=== PATIENT | female | born 1940 | race Two or more races ===

== ENCOUNTER 2023-06-13 20:04 | Inpatient (IN) ==
[2023-06-13] MEDS ORDERED: SODIUM CHLORIDE 1,000 ML IV STA (20:10)
[2023-06-13] MEDS ORDERED: ZOFRAN 4 MG/2 ML IVP STA (20:10)
[2023-06-13 20:38] LABS: BASOPHILS % (AUTO) 0.3 % (0.0-3.0); HEMOGLOBIN 13.1 g/dl (12.0-16.0); IMMATURE GRANULOCYTE # (AUTO) 0.1 (0.0-1.0); IMMATURE GRANULOCYTE % (AUTO) 0.4 % (0.0-5.0); LYMPHOCYTES # (AUTO) 0.7 K/uL (0.60-3.4); LYMPHOCYTES % (AUTO) 5.3 (10.0-50.0); MEAN CORPUSCULAR HEMOGLOBIN 29.2 pg (27.0-31.0); MEAN CORPUSCULAR HGB CONC 30.5 (31.8-35.4); MONOCYTES # (AUTO) 0.8 K/uL (0.4-2.0); MONOCYTES % (AUTO) 6.8 (0-10); NEUTROPHILS # (AUTO) 10.7 K/ul (2.0-6.9); NEUTROPHILS % (AUTO) 87.2 % (42.2-75.2); PLATELET COUNT 255 10^3/uL (140-440); RDW COEFFICIENT OF VARIATION 15.1 % (11.6-14.8); RED BLOOD COUNT 4.48 10^6/ul (4.20-5.40); WHITE BLOOD COUNT 12.29 K/ul (4.6-10.2)
--- NOTE | 2023-06-13 20:41 | DI ---
EXAM: FLAT AND UPRIGHT VIEWS OF THE ABDOMEN HISTORY: Nausea and vomiting COMPARISON: None. FINDINGS: No evidence of free air. Bowel does not appear obstructed. Degenerative change spine hips and pelvis .No renal stones. IMPRESSION: No acute abnormality.
--- NOTE | 2023-06-13 20:42 | DI ---
EXAM: CHEST RADIOGRAPH TECHNIQUE: Single frontal chest radiograph. HISTORY: Nausea and vomiting. COMPARISON: None. FINDINGS: The patient is leaning and rotated to the left. Equivocal pneumonia versus atelectasis of the left lower lobe. Small left pleural effusion. No visible pneumothorax. Mild cardiomegaly. No acute displaced rib fractures are identified. Surgical clips in the right upper quadrant. IMPRESSION: 1. Equivocal mild pneumonia versus atelectasis of the left lower lobe with small pleural effusion. 2. Mild cardiomegaly.
[2023-06-13 20:50] LABS: ALANINE AMINOTRANSFERASE 66.2 U/L (0-35); ALBUMIN 3.85 g/dL (3.5-5.0); ALKALINE PHOSPHATASE 106.3 U/L (53-141); ASPARTATE AMINO TRANSFERASE 67.8 U/L (14-36); BILIRUBIN,TOTAL 0.97 mg/dL (0.2-1.3); BLOOD UREA NITROGEN 23.1 mg/dL (7-17); CALCIUM 8.73 mg/dL (8.4-10.2); CARBON DIOXIDE 22.8 mmol/L (22-30.0); CHLORIDE 107.1 mmol/L (98-107); CREATININE 0.87 mg/dL (0.60-1.30); GLUCOSE 188.3 mg/dL (74-106); POTASSIUM 3.93 mmol/L (3.5-5.1); SODIUM 141.2 mmol/L (134.5-145); TOTAL PROTEIN 7.75 g/dL (6.3-8.2)
[2023-06-13] MEDS ORDERED: ROCEPHIN 2 GM/50 ML D5W 2 GM/50 ML BAG IV ONE (20:54)
--- NOTE | 2023-06-13 21:39 | ED.PDOC ---
General ED Provider: Dr. BETO SAWYER Chief Complaint: Nausea/Vomiting Stated Complaint: See above Time Seen by Provider: 06/13/23 20:06 Information Source: Family, Long Term and EMT Primary Care Provider: GAURAV JACKSON Nursing and Triage Documentation Reviewed and Agree: Yes (unless otherwise noted in my documentation.) Review of Systems Review Of Systems Constitutional: Reports Other (documented below) All Other Systems: Other (documented below) [facility] Medical History (Updated 06/13/23 @ 23:59 by IVONNE LEROY RN) Abnormal findings on diagnostic imaging of liver and biliary tract R93.2 - Abnormal findings on diagnostic imaging of liver and biliary tract (ICD-10) Abnormal results of liver function studies R94.5 - Abnormal results of liver function studies (ICD-10) Altered mental status, unspecified R41.82 - Altered mental status, unspecified (ICD-10) Chronic diastolic (congestive) heart failure I50.32 - Chronic diastolic (congestive) heart failure (ICD-10) Cognitive communication deficit R41.841 - Cognitive communication deficit (ICD-10) Difficulty in walking, not elsewhere classified R26.2 - Difficulty in walking, not elsewhere classified (ICD-10) 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 - Dysphagia following other cerebrovascular disease (ICD-10) Dysphagia, oral phase R13.11 - Dysphagia, oral phase (ICD-10) Essential (primary) hypertension I10 - Essential (primary) hypertension (ICD-10) Generalized muscle weakness M62.81 - Muscle weakness (generalized) (ICD-10) Hyperglycemia, unspecified R73.9 - Hyperglycemia, unspecified (ICD-10) Hypo-osmolality and hyponatremia E87.1 - Hypo-osmolality and hyponatremia (ICD-10) Iron deficiency anemia, unspecified D50.9 - Iron deficiency anemia, unspecified (ICD-10) Liver disease, unspecified K76.9 - Liver disease, unspecified (ICD-10) Moderate protein-calorie malnutrition E44.0 - Moderate protein-calorie malnutrition (ICD-10) Muscle wasting and atrophy, not elsewhere classified, multiple sites M62.59 - Muscle wasting and atrophy, not elsewhere classified, multiple sites (ICD-10) Other abnormalities of gait and mobility R26.89 - Other abnormalities of gait and mobility (ICD-10) Other lack of coordination R27.8 - Other lack of coordination (ICD-10) Other recurrent depressive disorders F33.8 - Other recurrent depressive disorders (ICD-10) Other reduced mobility Z74.09 - Other reduced mobility (ICD-10) 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 - 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 (ICD-10) 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 - 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 (ICD-10) Paroxysmal atrial fibrillation I48.0 - Paroxysmal atrial fibrillation (ICD-10) Personal history of COVID-19 Z86.16 - Personal history of COVID-19 (ICD-10) Repeated falls R29.6 - Repeated falls (ICD-10) Type 2 diabetes mellitus without complications E11.9 - Type 2 diabetes mellitus without complications (ICD-10) Unsteadiness on feet R26.81 - Unsteadiness on feet (ICD-10) Female Reproductive History Menstrual Hx Hysterectomy: No Hx Tubal Ligation: No Physical Exam Physical Exam Appearance: Reports Other (documented below if examined) Ill-appearing: Not Applicable (documented below if examined) Pain Distress: Not Applicable (documented below if examined) Eyes: Reports Other (documented below if examined) ENT: Reports Other (documented below if examined) Neck: Not Examined (documented below if examined) Respiratory: Reports Other (documented below if examined) Cardiovascular: Reports Other (documented below if examined) GI/: Reports Other (documented below if examined) Musculoskeletal: Reports Other (documented below if examined) Skin: Reports Other (documented below if examined) Neurological: Reports Other (documented below if examined) Psychiatric: Reports Other (documented below if examined) Critical Care Note Critical Care Note Total Critical Care Time (mins): 0 Course Course 06/13/23 20:30 06/13/23 20:30 Orders, Labs, Meds: Lab Review 06/13/23 06/13/23 06/13/23 20:30 21:00 22:11 WBC 12.29 H RBC 4.48 Hgb 13.1 Hct 43.0 MCV 96.0 MCH 29.2 MCHC 30.5 L RDW Coeff of Tony 15.1 H Plt Count 255 Immature Gran % (Auto) 0.4 Neut % (Auto) 87.2 H Lymph % (Auto) 5.3 L Carter % (Auto) 6.8 Eos % (Auto) 0.0 Baso % (Auto) 0.3 Neut # (Auto) 10.7 H Lymph # (Auto) 0.7 Carter # (Auto) 0.8 Eos # (Auto) 0.0 Baso # (Auto) 0.0 Immature Gran # (Auto) 0.1 PT 11.5 H INR 1.12 APTT 32.2 Sodium 141.2 Potassium 3.93 Chloride 107.1 H Carbon Dioxide 22.8 Anion Gap 15.23 BUN 23.1 H Creatinine 0.87 Estimated GFR (MDRD) 62.00 BUN/Creatinine Ratio 26.55 Glucose 188.3 H Lactic Acid 1.20 Calcium 8.73 Total Bilirubin 0.97 AST 67.8 H ALT 66.2 H Alkaline Phosphatase 106.3 Troponin I 0.018 NT-Pro-B Natriuret Pep 3640 H Total Protein 7.75 Albumin 3.85 Globulin 3.90 Albumin/Globulin Ratio 0.98 D-Dimer 1040.51 H Urine Color Yellow Urine Clarity Clear Urine pH 5.5 Ur Specific [place] 1.025 Urine Protein 2+ H Urine Glucose (UA) Negative Urine Ketones Negative Urine Blood 2+ H Urine Nitrite Positive H Urine Bilirubin Negative Urine Urobilinogen 0.2 Ur Leukocyte Esterase 1+ H Urine Microscopic RBC 10-20 Urine Microscopic WBC 10-20 Ur Squamous Epith Cells 0-2 Urine Bacteria 3+ Orders Category Date Time Status ADMIT PATIENT INPATIENT .TO [facility] (MONITORED BED) ADMISSION 06/13/23 22:09 Active EKG-(ED ONLY) Stat CARDIO 06/13/23 20:11 Completed INTAKE & OUTPUT Q8HR CARE 06/13/23 22:12 Active IP: INSERT SALINE LOCK [facility] CARE 06/13/23 22:12 Active TELEMETRY MONITORING TELE CARE 06/13/23 22:12 Active VITAL SIGNS Q8HR CARE 06/13/23 22:11 Active VITAL SIGNS Q8HR CARE 06/13/23 22:12 Active ACCUCHECK (ED) [ED ACCUCHECK ASSESSMENT] .ONCE EMERGENCY 06/13/23 20:13 Active ED CLEANING SPECIALIST APPLIED .ONCE EMERGENCY 06/13/23 20:13 Active BLOOD CULTURE (ED ONLY) Stat LAB 06/13/23 Ordered CBC W/ AUTO DIFF Stat LAB 06/13/23 20:30 Completed COMPREHENSIVE METABOLIC PANEL Stat LAB 06/13/23 20:30 Completed CRP [C-REACTIVE PROTEIN] Stat LAB 06/13/23 20:30 Received D-DIMER Stat LAB 06/13/23 21:00 Completed LACTIC ACID Stat LAB 06/13/23 20:30 Completed PROBNP ED [NT-PROBNP(ED)] Stat LAB 06/13/23 20:30 Completed PT WITH INR Stat LAB 06/13/23 21:00 Completed PTT [PARTIAL THROMBOPLASTIN TIME] Stat LAB 06/13/23 21:00 Completed TROPONIN I Stat LAB 06/13/23 20:30 Completed URINALYSIS WITH MICROSCOPIC Stat LAB 06/13/23 22:11 Completed Azithromycin Inj [Zithromax] 500 mg Meds 06/13/23 22:08 Discontinued 0.9 % Sodium Chloride [Sodium Chloride] 250 ml IV ONCE Ceftriaxone/D5w 2 gm Premix [Rocephin 2 gm/50 ml D5w] Meds 06/13/23 20:54 Discontinued 2 gm in 50 ml IV ONCE Ondansetron HCl/Pf [Zofran 4 mg/2 ml] Meds 06/13/23 20:10 Discontinued 4 mg IVP ONCE STA Sodium Chloride 0.9% [Sodium Chloride] 1,000 ml Meds 06/13/23 20:10 Discontinued IV BOLUS RESUSCITATION STATUS Routine OTHERS 06/13/23 22:09 Ordered ABDOMEN, SERIES FLAT & UPRIGHT Stat RADS 06/13/23 20:11 Completed CHEST, 1V AP ONLY Stat RADS 06/13/23 20:11 Completed OT EVALUATION Routine THERAPIES 06/14/23 00:01 Ordered PT INPATIENT EVALUATION Routine THERAPIES 06/13/23 22:11 Ordered Medications Generic Name Dose Route Start Last Admin Trade Name Freq PRN Reason Stop Dose Admin Diltiazem HCl 120 mg 06/14/23 09:00 Diltiazem Hcl 120 Mg Cap.Er.24h PO DAILY [facility] Ferrous Sulfate 324 mg 06/14/23 09:00 Ferrous Sulfate 324 Mg Tablet.Dr PO BID [facility] Levothyroxine Sodium 50 mcg 06/14/23 09:00 Levothyroxine Sodium 50 Mcg Tablet PO DAILY [facility] Lisinopril 20 mg 06/14/23 09:00 Lisinopril 10 Mg Tablet PO DAILY [facility] Melatonin 3 mg 06/14/23 21:00 Melatonin 3 Mg Tablet PO BEDTIME [facility] Metoprolol Succinate 200 mg 06/14/23 09:00 Metoprolol Succinate 50 Mg Tab.Er.24h PO DAILY [facility] Mirtazapine 15 mg 06/14/23 21:00 Mirtazapine 15 Mg Tablet PO BEDTIME [facility] Non-Formulary Medication 0.75 mg 06/15/23 09:00 Dulaglutide [Trulicity] SUBCUT WEEKLY [facility] Non-Formulary Medication 300 cap 06/14/23 09:00 Magnesium Oxide-Mg Aa Chelate [Magnesium (Oxide/Aa Chelate)] PO DAILY [facility] Pantoprazole Sodium 40 mg 06/14/23 09:00 Pantoprazole Sodium 40 Mg Tablet. PO BID [facility] Discontinued Medications Generic Name Dose Route Start Last Admin Trade Name Austenq PRN Reason Stop Dose Admin Sodium Chloride 1,000 mls @ 1,000 mls/hr 06/13/23 20:10 06/13/23 21:21 Sodium Chloride IV 06/13/23 21:09 1,000 mls/hr BOLUS STA Administration CEFTRIAXONE/D5W 2 GM PREMIX 2 gm in 50 mls @ 100 mls/hr 06/13/23 20:54 06/13/23 21:41 Rocephin 2 Gm/50 Ml D5w IV 06/13/23 21:23 100 mls/hr ONCE ONE Administration Azithromycin 500 mg/ Sodium 250 mls @ 250 mls/hr 06/13/23 22:08 06/13/23 22:34 Chloride IV 06/13/23 23:07 250 mls/hr ONCE ONE Administration Ondansetron HCl 4 mg 06/13/23 20:10 06/13/23 21:21 Ondansetron Hcl/Pf 4 Mg/2 Ml Sdv IVP 06/13/23 20:11 4 mg ONCE STA Administration Vital Signs: Temp Pulse Resp BP Pulse Ox 06/13/23 20:11 97.3 F L 103 H 16 158/90 H 93 L Discharge Plan Discharge Patient Disposition: ADMITTED INPATIENT Discharge Problem: CAP (community acquired pneumonia), Sepsis Did you review [place] [employer] for [place] controlled substances?: Not Applicable ED Provider: BETO SAWYER Condition: Stable Physician Progress Note: Disclaimer: This note was dictated by speech recognition technology. Minor errors in aerial installer may be present. Please call and notify me immediately for clarification or corrections. CC:declined state HPI: This is a care home resident patient who has dementia and at baseline has very limited verbal communications and has very limited mobility. She had a decline of her overall state of wellness and mental status for the past 4 days. Her family and the NH staff were concerned. The problem list, allergies, current medications and pharmacy records were reviewed and updated. ROS is included above. PE: Vital signs reviewed as well as all nursing documentation. General: Awake, alert, no acute distress, not toxic appearing but appears sick, dry, cachetic, chronically ill Overall, the patient is atraumatic, has no deformities, has no focal deficits, has no inappropriate behavior. Respiratory: No distress Cardiac: no edema or JVD, RRR MDM: All results and reports for tests that were done in the emergency department have been reviewed and considered in the planning and disposition process. DD: Sepsis Metabolic derangement: Hypo or hypernatremia, dehydration, acid-base imbalance Uremia Hepatic encephalopathy CVA Post-ictal state Acute anemia Drug induced ACS Arrhythmia Plan: CBC, CMP, EKG, UA, CXR, NS bolus Interpretation of tests: Leucocytosis with left shift, CXR was independently reviewed and interpreted and showed LLL PNA, pyuria, bacteruria Further action: sepsis workup was ordered, blood cultures, CRP, troponin, BNP, lactic acid, Ro cephin and azithromycin. BNP is elevated. F/U: the patient improved slightly. D/w family plan to admit and they agreed. D/w hospitalist who agreed to admit the patient to continue gentle hydration, abx treatment, PT/OT.
[2023-06-13] MEDS ORDERED: ZITHROMAX 500 MG in SODIUM CHLORIDE 250 ML IV ONE (22:08)
[2023-06-13 22:13] LABS: PARTIAL THROMBOPLASTIN TIME 32.2 SEC (23.9-40.0); PROTHROMBIN TIME 11.5 SEC (9.3-11.0)
[2023-06-13 22:28] LABS: BILIRUBIN,URINE Negative (NEGATIVE); CLARITY,URINE Clear (CLEAR); COLOR,URINE Yellow (YELLOW); GLUCOSE, URINE (UA) Negative (NEGATIVE); KETONES,URINE Negative (NEGATIVE); LEUKOCYTE ESTERASE ,URINE 1+ (NEGATIVE); NITRITE,URINE Positive (NEGATIVE); PH,URINE 5.5 (5-9); PROTEIN,URINE 2+ (NEGATIVE); URINE, BLOOD 2+ (NEGATIVE); UROBILINOGEN,URINE 0.2 (0.2)
[2023-06-13 22:32] LABS: SQUAMOUS EPITHELIAL CELL,UR 0-2 (0-5)
[2023-06-13 22:33] LABS: BACTERIA,URINE 3+ (NOT PRESENT)
[2023-06-14 00:59] VITALS: BMI 20.7
[2023-06-14 06:32] LABS: BASOPHILS % (AUTO) 0.3 % (0.0-3.0); EOSINOPHILS % (AUTO) 0.3 % (0.0-7.0); HEMATOCRIT 37.5 % (37.0-47.0); HEMOGLOBIN 11.5 g/dl (12.0-16.0); IMMATURE GRANULOCYTE # (AUTO) 0.1 (0.0-1.0); IMMATURE GRANULOCYTE % (AUTO) 0.5 % (0.0-5.0); LYMPHOCYTES # (AUTO) 0.9 K/uL (0.60-3.4); LYMPHOCYTES % (AUTO) 8.1 (10.0-50.0); MEAN CORPUSCULAR HEMOGLOBIN 29.3 pg (27.0-31.0); MEAN CORPUSCULAR HGB CONC 30.7 (31.8-35.4); MEAN CORPUSCULAR VOLUME 95.7 fl (81.0-99.0); MONOCYTES # (AUTO) 1.1 K/uL (0.4-2.0); MONOCYTES % (AUTO) 9.5 (0-10); NEUTROPHILS # (AUTO) 9.4 K/ul (2.0-6.9); NEUTROPHILS % (AUTO) 81.3 % (42.2-75.2); PLATELET COUNT 235 10^3/uL (140-440); RED BLOOD COUNT 3.92 10^6/ul (4.20-5.40); WHITE BLOOD COUNT 11.55 K/ul (4.6-10.2)
[2023-06-14 07:18] LABS: ALANINE AMINOTRANSFERASE 71.2 U/L (0-35); ALBUMIN 3.32 g/dL (3.5-5.0); ALKALINE PHOSPHATASE 90.7 U/L (53-141); ASPARTATE AMINO TRANSFERASE 74.2 U/L (14-36); BILIRUBIN,TOTAL 0.49 mg/dL (0.2-1.3); BLOOD UREA NITROGEN 20.2 mg/dL (7-17); CALCIUM 8.24 mg/dL (8.4-10.2); CARBON DIOXIDE 24.4 mmol/L (22-30.0); CHLORIDE 110.2 mmol/L (98-107); CREATININE 0.89 mg/dL (0.60-1.30); GLUCOSE 149.4 mg/dL (74-106); POTASSIUM 3.69 mmol/L (3.5-5.1); SODIUM 142.8 mmol/L (134.5-145); TOTAL PROTEIN 6.76 g/dL (6.3-8.2)
[2023-06-14] MEDS ORDERED: NON-FORMULARY MEDICATION (Magnesium Oxide-Mg Aa Chelate [Magnesium (Oxide/Aa Chelate)] 300 PO SCH (09:00)
[2023-06-14] MEDS: MAG-OX PO SCH (09:16)
[2023-06-14] MEDS: ZESTRIL PO SCH (09:16)
[2023-06-14] MEDS: PROTONIX PO SCH ×2 (09:16→20:51)
[2023-06-14] MEDS: FERROUS SULFATE PO SCH ×2 (09:16→20:52)
[2023-06-14] MEDS: SYNTHROID PO SCH (09:18)
[2023-06-14] MEDS: TOPROL XL PO SCH (09:18)
[2023-06-14] MEDS: CARDIZEM CD PO SCH (09:19)
--- NOTE | 2023-06-14 11:49 | PCM ---
Date of Service Date Seen by Provider: 06/14/23 Time Seen by Provider: 09:30 Admit Day/Time Admission Date: 06/13/23 Admission Time: 22:09 Reason for Admission Chief Complaint: SEPSIS Hospital Provider Hospital Provider: JUDY LANGE PA-C, [facility] Primary Care Physician Primary Care Physician: GAURAV JACKSON History of Present Illness History of Present Illness: Patient is an 82 year old female from the [place] with pmhx of CVA with left sided residual weakness, DMt@, HTN, heart failure, and paroxysmal a fib who presented to the [facility] for vomiting, decreased intake, and worsening mentation. In the ER patient was found to have LLL pneumonia and UTI. WBC count mildly elevated 12.2 and procal 0.71. D dimer 1040. BNP 3640. She was given fluids due to looking dehydrated and meeting sepsis criteria. She was admitted to [facility]. On my evaluation, patient is eating breakfast with assistance of family. and son are present. states she is looking much better today. Son states her baseline is answering yes or no (sometimes appropriately), gets in wheelchair during the day, then back to bed. Normally isn't able to say her name or where she is. This morning she is alert, and answering yes and no to questions which is an improvement. Discussed with her hx of PAF and that she is in a fib now. He states they took her off of a blood thinner due to a GI bleed. ROS limited due to patient's inability to provide history. Case Discussed With Case Discussed With: Patient's case was discussed with the ER Physicians, Dr. [facility] Medical History Abnormal findings on diagnostic imaging of liver and biliary tract R93.2 - Abnormal findings on diagnostic imaging of liver and biliary tract (ICD-10) Abnormal results of liver function studies R94.5 - Abnormal results of liver function studies (ICD-10) Altered mental status, unspecified R41.82 - Altered mental status, unspecified (ICD-10) Chronic diastolic (congestive) heart failure I50.32 - Chronic diastolic (congestive) heart failure (ICD-10) Cognitive communication deficit R41.841 - Cognitive communication deficit (ICD-10) Difficulty in walking, not elsewhere classified R26.2 - Difficulty in walking, not elsewhere classified (ICD-10) 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 - Dysphagia following other cerebrovascular disease (ICD-10) Dysphagia, oral phase R13.11 - Dysphagia, oral phase (ICD-10) Essential (primary) hypertension I10 - Essential (primary) hypertension (ICD-10) Generalized muscle weakness M62.81 - Muscle weakness (generalized) (ICD-10) Hyperglycemia, unspecified R73.9 - Hyperglycemia, unspecified (ICD-10) Hypo-osmolality and hyponatremia E87.1 - Hypo-osmolality and hyponatremia (ICD-10) Iron deficiency anemia, unspecified D50.9 - Iron deficiency anemia, unspecified (ICD-10) Liver disease, unspecified K76.9 - Liver disease, unspecified (ICD-10) Moderate protein-calorie malnutrition E44.0 - Moderate protein-calorie malnutrition (ICD-10) Muscle wasting and atrophy, not elsewhere classified, multiple sites M62.59 - Muscle wasting and atrophy, not elsewhere classified, multiple sites (ICD-10) Other abnormalities of gait and mobility R26.89 - Other abnormalities of gait and mobility (ICD-10) Other lack of coordination R27.8 - Other lack of coordination (ICD-10) Other recurrent depressive disorders F33.8 - Other recurrent depressive disorders (ICD-10) Other reduced mobility Z74.09 - Other reduced mobility (ICD-10) 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 - 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 (ICD-10) 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 - 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 (ICD-10) Paroxysmal atrial fibrillation I48.0 - Paroxysmal atrial fibrillation (ICD-10) Personal history of COVID-19 Z86.16 - Personal history of COVID-19 (ICD-10) Repeated falls R29.6 - Repeated falls (ICD-10) Type 2 diabetes mellitus without complications E11.9 - Type 2 diabetes mellitus without complications (ICD-10) Unsteadiness on feet R26.81 - Unsteadiness on feet (ICD-10) Social History (Updated 06/14/23 @ 11:55 by JUDY LANGE PA-C) Marital status: M Additional social history: [facility]. Allergies Allergies Allergy/AdvReac Type Severity Reaction Status Date / Time amlodipine [From [facility]] AdvReac Unknown Verified 06/13/23 20:18 codeine AdvReac Unknown Verified 06/13/23 20:18 propoxyphene AdvReac Unknown Verified 06/13/23 20:18 Sulfa (Sulfonamide AdvReac Unknown Verified 06/13/23 20:18 Antibiotics) Current Medications Home Medications ferrous sulfate 325 mg (65 mg iron) tablet 325 mg PO BID 09/09/20 [History Confirmed 06/13/23 Last Taken Unknown] lisinopril 20 mg tablet 20 mg PO DAILY 09/09/20 [History Confirmed 06/13/23 Last Taken Unknown] magnesium oxide-magnesium amino acid chelate 300 mg capsule (Magnesium (oxide/AA chelate)) 300 cap PO DAILY 09/09/20 [History Confirmed 06/13/23 Last Taken Unknown] melatonin 3 mg tablet 3 mg PO BEDTIME PRN Sleep 09/09/20 [History Confirmed 10/24 Last Taken Unknown] metoprolol succinate 200 mg capsule sprinkle, ext. release 24 hr 200 mg PO DAILY 09/09/20 [History Confirmed 06/13/23 Last Taken Unknown] diltiazem HCl 120 mg capsule,extended release 24 hr 120 mg PO DAILY 06/13/23 [History Confirmed 06/13/23 Last Taken Unknown] dulaglutide 0.75 mg/0.5 mL subcutaneous pen injector (Trulicity) 0.75 mg subcut DAILY 06/13/23 [History Confirmed 06/13/23 Last Taken Unknown] levothyroxine 50 mcg tablet 50 mcg PO DAILY 06/13/23 [History Confirmed 06/13/23 Last Taken Unknown] metformin 500 mg 24 hr tablet,extended release (Glumetza) 500 mg PO BID 06/13/23 [History Confirmed 06/13/23 Last Taken Unknown] mirtazapine 15 mg tablet 15 mg PO BEDTIME 06/13/23 [History Confirmed 06/13/23 Last Taken Unknown] pantoprazole 40 mg tablet,delayed release 40 mg PO BID 06/13/23 [History Confirmed 06/13/23 Last Taken Unknown] Home Diltiazem HCl (Diltiazem Hcl 120 Mg Cap.Er.24h) 120 mg PO DAILY [facility] Last Admin: 06/14/23 09:19 Dose: 120 mg Enoxaparin Sodium (Enoxaparin Sodium 30 Mg/0.3 Ml Syr) 30 mg SUBCUT DAILY [facility] Ferrous Sulfate (Ferrous Sulfate 324 Mg Tablet.) 324 mg PO BID [facility] Last Admin: 06/14/23 09:16 Dose: 324 mg CEFTRIAXONE/D5W 1 GM PREMIX (Rocephin 1 Gm/50 Ml D5w) 1 gm in 50 mls @ 100 mls/hr IV DAILY [facility] Stop: 06/17/23 12:29 Azithromycin 500 mg/ Sodium (Chloride) 250 mls @ 250 mls/hr IV DAILY [facility] Stop: 06/17/23 12:29 Insulin Human Lispro (Insulin Lispro 100 Unit/Ml (3 Ml) Vial) 0 unit SUBCUT PRN PRN; Protocol PRN Reason: Hyperglycemia Levothyroxine Sodium (Levothyroxine Sodium 50 Mcg Tablet) 50 mcg PO DAILY [facility] Last Admin: 06/14/23 09:18 Dose: 50 mcg Lisinopril (Lisinopril 10 Mg Tablet) 20 mg PO DAILY [facility] Last Admin: 06/14/23 09:16 Dose: 20 mg Magnesium Oxide (Magnesium Oxide 400 Mg Tablet) 400 mg PO DAILY [facility] Last Admin: 06/14/23 09:16 Dose: 400 mg Melatonin (Melatonin 3 Mg Tablet) 3 mg PO BEDTIME [facility] Metoprolol Succinate (Metoprolol Succinate 50 Mg Tab.Er.24h) 200 mg PO DAILY [facility] Last Admin: 06/14/23 09:18 Dose: 200 mg Mirtazapine (Mirtazapine 15 Mg Tablet) 15 mg PO BEDTIME [facility] Non-Formulary Medication (Dulaglutide [Trulicity]) 0.75 mg SUBCUT WEEKLY [facility] Pantoprazole Sodium (Pantoprazole Sodium 40 Mg Tablet.) 40 mg PO BID [facility] Last Admin: 06/14/23 09:16 Dose: 40 mg Sodium Chloride (0.9% Sodium Chloride 10 Ml Disp.Syrin) 1 syr IVF Q8HR [facility] Discontinued Medications Sodium Chloride (Sodium Chloride) 1,000 mls @ 1,000 mls/hr IV BOLUS STA Stop: 06/13/23 21:09 Last Admin: 06/13/23 21:21 Dose: 1,000 mls/hr CEFTRIAXONE/D5W 2 GM PREMIX (Rocephin 2 Gm/50 Ml D5w) 2 gm in 50 mls @ 100 mls/hr IV ONCE ONE Stop: 08/12/23 21:23 Last Admin: 06/13/23 21:41 Dose: 100 mls/hr Azithromycin 500 mg/ Sodium (Chloride) 250 mls @ 250 mls/hr IV ONCE ONE Stop: 06/13/23 23:07 Last Admin: 06/13/23 22:34 Dose: 250 mls/hr Ondansetron HCl (Ondansetron Hcl/Pf 4 Mg/2 Ml Sdv) 4 mg IVP ONCE STA Stop: 06/13/23 20:11 Last Admin: 06/13/23 21:21 Dose: 4 mg Review of Systems Constitutional: Reports Weakness Head: Reports Normocephalic and Atraumatic Cardiovascular: Denies Chest pain Respiratory: Denies Cough or Shortness of air Gastrointestinal: Reports Nausea and Vomiting; Denies Abdominal pain Physical examination Most Recent Vital Signs: Most Recent Vital Signs Temperature 99.3 F 06/14/23 05:16 Temperature Source Axillary 06/14/23 05:16 Temperature Source Infrared 06/13/23 20:11 Pulse Rate 110 H 06/14/23 05:16 Respiratory Rate 16 06/14/23 05:16 Blood Pressure 116/74 06/14/23 05:16 Blood Pressure Mean 88 06/14/23 05:16 Blood Pressure Right Arm 129/79 06/13/23 23:30 Blood Pressure Location Right Arm 06/14/23 05:16 Blood Pressure Position Supine 06/14/23 05:16 O2 Sat by Pulse Oximetry 93 L 06/14/23 05:16 Oxygen Delivery Method Room Air 06/14/23 05:16 Height 5 ft 06/13/23 23:30 Weight 106 lb 8 oz 06/13/23 23:30 Telemetry Type Remote Telemetry 06/14/23 07:00 Telemetry Monitoring Continues 06/14/23 07:00 Irregular Telemetry Rate (Approximate) 100-110 BPM 06/14/23 07:00 Telemetry Heart Rate 109 H 06/14/23 07:00 EKG QRS Interval 0.08 06/14/23 07:00 Telemetry Strip Reading A-Flutter 06/14/23 07:00 Appearance: Positive Other (+thin, frail, elderly patient. NAD. Alert. Demented. ) Skin: Positive [place] and Warm; Negative Rashes HEENT: Positive Normocephalic and Atraumatic Neck: Positive Supple and Midline Trachea Chest/Lungs: Positive Clear to Auscultation Bilaterally; Negative Rales, Rhonci or Wheezes Heart: Positive Irregular Rhythm GI/: Positive Soft, Nontender and Bowel Sounds Normal Extremities: Negative Edema Neurological: Positive Alert and Other (+generalized weakness. left upper ext contracture from past cva. Able to follow basic commands. ) Psychiatric: Positive Other (+unable to fully assess due to dementia and limited communication. ) Labs This Visit Labs This Visit: Labs This Visit 06/13/23 06/13/23 06/13/23 20:30 21:00 22:11 WBC 12.29 H RBC 4.48 Hgb 13.1 Hct 43.0 MCV 96.0 MCH 29.2 MCHC 30.5 L RDW Coeff of Tony 15.1 H Plt Count 255 Immature Gran % (Auto) 0.4 Neut % (Auto) 87.2 H Lymph % (Auto) 5.3 L [place] % (Auto) 6.8 Eos % (Auto) 0.0 Baso % (Auto) 0.3 Neut # (Auto) 10.7 H Lymph # (Auto) 0.7 [place] # (Auto) 0.8 Eos # (Auto) 0.0 Baso # (Auto) 0.0 Immature Gran # (Auto) 0.1 PT 11.5 H INR 1.12 APTT 32.2 Sodium 141.2 Potassium 3.93 Chloride 107.1 H Carbon Dioxide 22.8 Anion Gap 15.23 BUN 23.1 H Creatinine 0.87 Estimated GFR (MDRD) 62.00 BUN/Creatinine Ratio 26.55 Glucose 188.3 H Lactic Acid 1.20 Calcium 8.73 Total Bilirubin 0.97 AST 67.8 H ALT 66.2 H Alkaline Phosphatase 106.3 Troponin I 0.018 NT-Pro-B Natriuret Pep 3640 H Total Protein 7.75 Albumin 3.85 Globulin 3.90 Albumin/Globulin Ratio 0.98 Procalcitonin TSH D-Dimer 1040.51 H Urine Color Yellow Urine Clarity Clear Urine pH 5.5 Ur Specific [place] 1.025 Urine Protein 2+ H Urine Glucose (UA) Negative Urine Ketones Negative Urine Blood 2+ H Urine Nitrite Positive H Urine Bilirubin Negative Urine Urobilinogen 0.2 Ur Leukocyte Esterase 1+ H Urine Microscopic RBC 10-20 Urine Microscopic WBC 10-20 Ur Squamous Epith Cells 0-2 Urine Bacteria 3+ 06/14/23 04:53 WBC 11.55 H RBC 3.92 L Hgb 11.5 L Hct 37.5 MCV 95.7 MCH 29.3 MCHC 30.7 L RDW Coeff of Tony 15.0 H Plt Count 235 Immature Gran % (Auto) 0.5 Neut % (Auto) 81.3 H Lymph % (Auto) 8.1 L [place] % (Auto) 9.5 Eos % (Auto) 0.3 Baso % (Auto) 0.3 Neut # (Auto) 9.4 H Lymph # (Auto) 0.9 [place] # (Auto) 1.1 Eos # (Auto) 0.0 Baso # (Auto) 0.0 Immature Gran # (Auto) 0.1 PT INR APTT Sodium 142.8 Potassium 3.69 Chloride 110.2 H Carbon Dioxide 24.4 Anion Gap 11.89 BUN 20.2 H Creatinine 0.89 Estimated GFR (MDRD) 61.00 BUN/Creatinine Ratio 22.69 Glucose 149.4 H Lactic Acid Calcium 8.24 L Total Bilirubin 0.49 AST 74.2 H ALT 71.2 H Alkaline Phosphatase 90.7 Troponin I NT-Pro-B Natriuret Pep Total Protein 6.76 Albumin 3.32 L Globulin 3.44 Albumin/Globulin Ratio 0.96 Procalcitonin 0.71 H TSH 0.651 D-Dimer Urine Color Urine Clarity Urine pH Ur Specific [place] Urine Protein Urine Glucose (UA) Urine Ketones Urine Blood Urine Nitrite Urine Bilirubin Urine Urobilinogen Ur Leukocyte Esterase Urine Microscopic RBC Urine Microscopic WBC Ur Squamous Epith Cells Urine Bacteria Microbiology This Visit 06/13/23 22:11 Urine,[place] Urine Culture - Preliminary Imaging Imaging: EXAM: CHEST RADIOGRAPH TECHNIQUE: Single frontal chest radiograph. HISTORY: Nausea and vomiting. COMPARISON: None. FINDINGS: The patient is leaning and rotated to the left. Equivocal pneumonia versus atelectasis of the left lower lobe. Small left pleural effusion. No visible pneumothorax. Mild cardiomegaly. No acute displaced rib fractures are identified. Surgical clips in the right upper quadrant. IMPRESSION: 1. Equivocal mild pneumonia versus atelectasis of the left lower lobe with small pleural effusion. 2. Mild cardiomegaly. Review Statement Review Statement: I have independently reviewed and interpreted the labs/EKGs/imaging that were ordered by the ER provider. I have reviewed all outside records that are available currently in our EMR including imaging/notes/labs from previous visits. Plan Plan: 1. CAP, left - Rocephin and azith ordered. RT consult. D dimer elevated and tachycardia, will get CTA to r/o PE. 2. UTI - UA suspect for UTI. Cont rocephin. UC pending. 3. Sepsis in setting of CAP and UTI - Continue abx as above. BC pending. LA normal but procal elevated at 0.71. Will trend. Renal function at baseline. 4. Paroxysmal a fib - Not on blood thinner due to past GI bleed. Cont metoprolol and cardizem. 5. DMt2 - Hold metformin. SS insulin. Accuchecks achs. 6. Hypertension - Continue home meds 7. Hypothyroidism - Continue home meds 8. Iron deficiency - Continue iron supplement 9. GERD - Continue home meds 10. Elevated d dimer - CTA chest to r/o PE and BLE US to r/o DVT. DVT Prophylaxis: lovenox, prophylactic dose Time Spent: Greater than 80 minutes spent with patient, 50% of the time spent wi th this patient was devoted to counseling and coordination of care. [facility] minutes spent discussing advance care planning. DNR Admit to: Inpatient Discussed Plan of Care with Dr. Amara Jones. Medications Medication Orders: Medications Ordered Category Date Time Status Diltiazem HCl [Cardizem Cd] Meds 06/14/23 09:00 Active 120 mg PO DAILY Ferrous Sulfate Meds 06/14/23 09:00 Active 324 mg PO BID Levothyroxine Sodium [Synthroid] Meds 06/14/23 09:00 Active 50 mcg PO DAILY Lisinopril [Zestril] Meds 06/14/23 09:00 Active 20 mg PO DAILY Magnesium Oxide [Mag-Ox] Meds 06/14/23 09:00 Active 400 mg PO DAILY Melatonin Meds 06/14/23 21:00 Active 3 mg PO BEDTIME Metoprolol Succinate [Toprol Xl] Meds 06/14/23 09:00 Active 200 mg PO DAILY Mirtazapine [Remeron] Meds 06/14/23 21:00 Active 15 mg PO BEDTIME Pantoprazole Sodium [Protonix] Meds 06/14/23 09:00 Active 40 mg PO BID dulaglutide [Trulicity] Meds 06/15/23 09:00 Active 0.75 mg SUBCUT WEEKLY
[2023-06-14] MEDS: ZITHROMAX 500 MG in SODIUM CHLORIDE 250 ML IV SCH (13:44)
--- NOTE | 2023-06-14 13:47 | CT ---
EXAM: CT ANGIOGRAPHY CHEST (PE PROTOCOL) HISTORY: Elevated D-dimer, tachycardia TECHNIQUE: CTA chest with intravenous contrast. PE protocol. Multiplanar images were provided with MIP images and 3-D reconstructions. COMPARISON: None FINDINGS: No pulmonary arterial thromboembolism. Thoracic aorta has mild to moderate atherosclerot ic disease. A few coronary artery calcifications are suggested. Cardiomegaly is present. Cannot ex clude focal wall thickening of the mid esophagus just below the level of the pepito. Patient positio sapphire degrades image quality. Lungs reveal vascular congestion and diffuse interstitial infiltrates b ilaterally. Trace pleural effusions. No pneumothorax. Bones reveal exaggerated thoracic kyphosis. Mosaic appearance of the liver parenchymal density may represent geographic steatosis. IMPRESSION: 1. No pulmonary arterial thromboembolism. 2. Atherosclerotic disease 3. Cardiomegaly. 4. Lungs reveal vascular congestion and diffuse mild to moderate interstitial infiltrates bilaterall y (pulmonary edema versus less likely pneumonitis). Trace pleural effusions. 5. Cannot exclude focal wall thickening of the mid esophagus just below the level of the pepito. 6. Mosaic appearance of the liver parenchymal density may represent geographic steatosis. 7. Recommend follow-up CT chest for reevaluation. - - - - - All CT scans are performed using dose optimization techniques as appropriate to the performed exam an d include at least one of the following: Automated exposure control, adjustment of the mA and/or kV according t o size, and the use of iterative reconstruction technique.
[2023-06-14] MEDS: ROCEPHIN 1 GM/50 ML D5W 1 GM/50 ML BAG IV SCH (13:53)
[2023-06-14] MEDS: REMERON PO SCH (20:51)
[2023-06-14] MEDS: MELATONIN PO SCH (20:51)
[2023-06-15 05:51] LABS: BASOPHILS % (AUTO) 0.6 % (0.0-3.0); EOSINOPHILS # (AUTO) 0.1 K/ul (0.0-0.7); EOSINOPHILS % (AUTO) 1.5 % (0.0-7.0); HEMATOCRIT 36.6 % (37.0-47.0); HEMOGLOBIN 11.2 g/dl (12.0-16.0); IMMATURE GRANULOCYTE % (AUTO) 0.3 % (0.0-5.0); LYMPHOCYTES % (AUTO) 14.6 (10.0-50.0); MEAN CORPUSCULAR HGB CONC 30.6 (31.8-35.4); MEAN CORPUSCULAR VOLUME 94.8 fl (81.0-99.0); MONOCYTES # (AUTO) 0.9 K/uL (0.4-2.0); MONOCYTES % (AUTO) 12.7 (0-10); NEUTROPHILS % (AUTO) 70.3 % (42.2-75.2); PLATELET COUNT 222 10^3/uL (140-440); RED BLOOD COUNT 3.86 10^6/ul (4.20-5.40); WHITE BLOOD COUNT 7.11 K/ul (4.6-10.2)
[2023-06-15 06:11] LABS: ALBUMIN 3.07 g/dL (3.5-5.0); ALKALINE PHOSPHATASE 107.8 U/L (53-141); ASPARTATE AMINO TRANSFERASE 151.7 U/L (14-36); BILIRUBIN,TOTAL 0.54 mg/dL (0.2-1.3); BLOOD UREA NITROGEN 16.7 mg/dL (7-17); CALCIUM 8.07 mg/dL (8.4-10.2); CARBON DIOXIDE 27.1 mmol/L (22-30.0); CHLORIDE 106.4 mmol/L (98-107); CREATININE 0.85 mg/dL (0.60-1.30); GLUCOSE 136.7 mg/dL (74-106); POTASSIUM 3.16 mmol/L (3.5-5.1); SODIUM 139.6 mmol/L (134.5-145); TOTAL PROTEIN 6.6 g/dL (6.3-8.2)
[2023-06-15] MEDS: ROCEPHIN 1 GM/50 ML D5W 1 GM/50 ML BAG IV SCH (09:34)
[2023-06-15] MEDS: TOPROL XL PO SCH (09:40)
[2023-06-15] MEDS: MAG-OX PO SCH (09:40)
[2023-06-15] MEDS: ZESTRIL PO SCH (09:40)
[2023-06-15] MEDS: CARDIZEM CD PO SCH (09:41)
[2023-06-15] MEDS: PROTONIX PO SCH ×2 (09:41→20:51)
[2023-06-15] MEDS: FERROUS SULFATE PO SCH ×2 (09:41→20:51)
[2023-06-15] MEDS ORDERED: POTASSIUM CHL 10% ORAL SOL PO ONE (09:52)
[2023-06-15] MEDS: LOVENOX SUBCUT SCH (09:52)
[2023-06-15] MEDS: SYNTHROID PO SCH (09:56)
[2023-06-15] MEDS: ZITHROMAX 500 MG in SODIUM CHLORIDE 250 ML IV SCH (10:18)
--- NOTE | 2023-06-15 11:24 | PCM.PROG ---
Date/Time Seen Date Seen by Provider: 06/15/23 Time Seen by Provider: 09:15 Provider Provider: POLINA MORRIS, [facility] Chief Complaint Chief Complaint: SEPSIS Subjective Subjective: Awake and eating breakfast. and son at beside. No events overnight. Not requiring oxygen at this time. Objective Appearance: Positive No Apparent Distress, Ill-Appearing, Thin and Cachectic Chest/Lungs: Positive Symmetrical With Equal Breath Sounds and Rhonci Heart: Positive RRR and Pulses Normal GI/: Positive Soft, Nontender, Bowel Sounds Normal and No Distention Musculoskeletal: Positive Other (contracted lower extremities) Neurological: Positive Alert and Other (able to follow basic commands, chronic left sided weakness due to previous CVA) Vital Signs Vital Signs: Vital Signs: Last 24 Hours 06/14/23 14:00 06/14/23 13:00 06/14/23 19:00 Temperature 97.9 F Temperature Source Oral Pulse Rate 87 Pulse Rate [Apical] Respiratory Rate 18 Blood Pressure 122/69 Blood Pressure Mean 86 Blood Pressure Location Right Arm Blood Pressure Position Supine O2 Sat by Pulse Oximetry 93 L Oxygen Delivery Method Room Air Telemetry Type Remote Telemetry Remote Telemetry Telemetry Monitoring Continues Continues Irregular Telemetry Rate (Approximate) 90-100 BPM 80-90 BPM Telemetry Heart Rate 100 82 EKG QRS Interval 0.08 0.07 Telemetry Strip Reading AFIB A-fib no ectopy noted 06/14/23 20:00 06/14/23 21:23 06/15/23 01:00 Temperature 97.3 F L Temperature Source Temporal Artery Scan Pulse Rate 96 Pulse Rate [Apical] 84 Respiratory Rate 14 16 Blood Pressure 125/72 Blood Pressure Mean 89 Blood Pressure Location Right Arm Blood Pressure Position Supine O2 Sat by Pulse Oximetry 94 L Oxygen Delivery Method Room Air Room Air Telemetry Type Remote Telemetry Telemetry Monitoring Continues Irregular Telemetry Rate (Approximate) 100-110 BPM Telemetry Heart Rate 108 H EKG QRS Interval 0.07 Telemetry Strip Reading A-Fib no ectopy noted 06/15/23 05:07 06/15/23 07:00 Temperature 96.4 F L Temperature Source Oral Pulse Rate 90 Pulse Rate [Apical] Respiratory Rate 14 Blood Pressure 128/78 Blood Pressure Mean 94 Blood Pressure Location Right Arm Blood Pressure Position Supine O2 Sat by Pulse Oximetry 97 Oxygen Delivery Method Room Air Telemetry Type Remote Telemetry Telemetry Monitoring Continues Irregular Telemetry Rate (Approximate) Telemetry Heart Rate 92 EKG QRS Interval Telemetry Strip Reading Afib Lab Results Lab Results: Lab Results: Last 24 Hours 06/15/23 06/15/23 06/15/23 06:00 05:50 05:45 WBC 7.11 RBC 3.86 L Hgb 11.2 L Hct 36.6 L MCV 94.8 MCH 29.0 MCHC 30.6 L RDW Coeff of Tony 15.0 H Plt Count 222 Immature Gran % (Auto) 0.3 Neut % (Auto) 70.3 Lymph % (Auto) 14.6 [place] % (Auto) 12.7 H Eos % (Auto) 1.5 Baso % (Auto) 0.6 Neut # (Auto) 5.0 Lymph # (Auto) 1.0 [place] # (Auto) 0.9 Eos # (Auto) 0.1 Baso # (Auto) 0.0 Immature Gran # (Auto) 0.0 Sodium 139.6 Potassium 3.16 L Chloride 106.4 Carbon Dioxide 27.1 Anion Gap 9.26 BUN 16.7 Creatinine 0.85 Estimated GFR (MDRD) 64.00 BUN/Creatinine Ratio 19.64 Glucose 136.7 H Calcium 8.07 L Total Bilirubin 0.54 AST 151.7 H D ALT 130.0 H D Alkaline Phosphatase 107.8 Total Protein 6.60 Albumin 3.07 L Globulin 3.53 Albumin/Globulin Ratio 0.86 Procalcitonin 0.69 H Additional Comments Additional Comments: I have independently reviewed and interpreted the labs/EKGs/imaging ordered during this hospital stay. I have reviewed outside records that are available in our EMR that pertain to medical stay including imaging/notes/labs from previous visits. Active Medications Active Medications: Medications Generic Name Dose Route Start Last Admin Trade Name Freq PRN Reason Stop Dose Admin Diltiazem HCl 120 mg 06/14/23 09:00 06/15/23 09:41 Diltiazem Hcl 120 Mg Cap.Er.24h PO 120 mg DAILY [facility] Administration Enoxaparin Sodium 30 mg 06/15/23 09:00 06/15/23 09:52 Enoxaparin Sodium 30 Mg/0.3 Ml Syr SUBCUT 30 mg DAILY [facility] Administration Ferrous Sulfate 324 mg 06/14/23 09:00 06/15/23 09:41 Ferrous Sulfate 324 Mg Tablet. PO 324 mg BID [facility] Administration CEFTRIAXONE/D5W 1 GM PREMIX 1 gm in 50 mls @ 100 mls/hr 06/14/23 12:30 06/15/23 09:34 Rocephin 1 Gm/50 Ml D5w IV 06/17/23 12:29 100 mls/hr DAILY [facility] Administration Azithromycin 500 mg/ Sodium 250 mls @ 250 mls/hr 06/14/23 12:30 06/15/23 10:18 Chloride IV 06/17/23 12:29 250 mls/hr DAILY [facility] Administration Insulin Human Lispro 0 unit 06/14/23 12:05 Insulin Lispro 100 Unit/Ml (3 Ml) Vial SUBCUT PRN PRN Hyperglycemia Protocol Levothyroxine Sodium 50 mcg 06/14/23 09:00 06/15/23 09:56 Levothyroxine Sodium 50 Mcg Tablet PO 50 mcg DAILY [facility] Administration Lisinopril 20 mg 06/14/23 09:00 06/15/23 09:40 Lisinopril 10 Mg Tablet PO 20 mg DAILY [facility] Administration Magnesium Oxide 400 mg 06/14/23 09:00 06/15/23 09:40 Magnesium Oxide 400 Mg Tablet PO 400 mg DAILY [facility] Administration Melatonin 3 mg 06/14/23 21:00 06/14/23 20:51 Melatonin 3 Mg Tablet PO 3 mg BEDTIME [facility] Administration Metoprolol Succinate 200 mg 06/14/23 09:00 06/15/23 09:40 Metoprolol Succinate 50 Mg Tab.Er.24h PO 200 mg DAILY [facility] Administration Mirtazapine 15 mg 06/14/23 21:00 06/14/23 20:51 Mirtazapine 15 Mg Tablet PO 15 mg BEDTIME [facility] Administration Non-Formulary Medication 0.75 mg 06/15/23 09:00 06/15/23 10:43 Dulaglutide [Trulicity] SUBCUT Not Given WEEKLY [facility] Pantoprazole Sodium 40 mg 06/14/23 09:00 06/15/23 09:41 Pantoprazole Sodium 40 Mg Tablet.Dr PO 40 mg BID [facility] Administration Sodium Chloride 1 syr 06/14/23 13:00 06/15/23 05:10 0.9% Sodium Chloride 10 Ml Disp.Syrin IVF 1 syr Q8HR [facility] Administration Plan Plan: 1. CAP, left - Rocephin and azith ordered. RT consult - no hypoxia at this time, CTA negative for PE 2. UTI - UA suspect for UTI, Cont rocephin. UC negative 3. Sepsis in setting of CAP and UTI - Continue abx as above. BC pending. LA normal but procal elevated at 0.71. Will trend. Renal function at baseline. 4. Acute Transaminitis - likely due to above, checking hep panel and liver us due to significant elevation in enzymes 5. Paroxysmal a fib - Not on blood thinner due to past GI bleed. Cont metoprolol and cardizem. 6. DMt2 - Hold metformin. SS insulin. Accuchecks achs. 7. Hypertension - Continue home meds 8. Hypothyroidism - Continue home meds 9. Iron deficiency - Continue iron supplement 10. GERD - Continue home meds 11. Elevated d dimer - CTA negative for PE, checking BLE US to r/o DVT. Review Statement Review Statement: I have personally discussed and reviewed the patient's visit/currently labs/imaging/decision making with Dr. Jones, my supervising attending. Greater that 50 minutes spent with patient, 50% of the time spent with this patient was devoted to counseling and coordination of care.
[2023-06-15] MEDS ORDERED: POTASSIUM CHL 10% ORAL SOL ONE (12:22)
--- NOTE | 2023-06-15 13:09 | US ---
EXAM: ULTRASOUND ABDOMINAL COMPLETE HISTORY: Elevated LFTs TECHNIQUE: Sonography of the abdomen was performed. Images were obtained and stored in a permanent a rchive. Color Doppler images of the main portal vein were also obtained. COMPARISON: None FINDINGS: Pancreas: Normal sonographic appearance of the head and body. Tail is partially obscured. Liver: Heterogeneous echotexture with ill-defined hyperechoic areas. No. - Normal antegrade flow within the main portal vein. Biliary: Limited evaluation of the bile duct secondary to bowel gas. The gallbladder is removed. Spleen: Not visualized. . Right Kidney: No hydronephrosis. No lesions. No calculus. Left Kidney: No hydronephrosis. No lesions. No calculus. IVC: Limits. Aorta: No aneurysmal dilatation in visualized portions. Other: No ascites. IMPRESSION: Limited by bowel gas. Heterogeneous echotexture of the liver suggestive of areas of focal fatty infiltration and fatty spar ing. Otherwise, unremarkable abdominal ultrasound as seen. Please see above description.
--- NOTE | 2023-06-15 13:16 | US ---
EXAM: VENOUS DOPPLER BILATERAL LOWER EXTREMITY. HISTORY: Elevated D-dimer COMPARISON: None. TECHNIQUE: Duplex Doppler ultrasound of the bilateral lower extremity. Color Doppler, spectral Dopp ler waveforms, and burgos scale images obtained. FINDINGS: The common femoral, greater saphenous, superficial femoral, profunda femoris, popliteal, anterior tib ial, peroneal, and posterior tibial veins are freely compressible with spontaneous flow. IMPRESSION: No evidence of deep vein thrombosis.
[2023-06-15] MEDS: HUMALOG SUBCUT PRN ×2 (17:02→20:52)
[2023-06-15] MEDS: REMERON PO SCH (20:51)
[2023-06-15] MEDS: MELATONIN PO SCH (20:51)
[2023-06-16 05:27] LABS: BASOPHILS % (AUTO) 0.7 % (0.0-3.0); EOSINOPHILS # (AUTO) 0.2 K/ul (0.0-0.7); EOSINOPHILS % (AUTO) 2.5 % (0.0-7.0); HEMATOCRIT 36.6 % (37.0-47.0); HEMOGLOBIN 11.2 g/dl (12.0-16.0); IMMATURE GRANULOCYTE # (AUTO) 0.1 (0.0-1.0); IMMATURE GRANULOCYTE % (AUTO) 0.8 % (0.0-5.0); LYMPHOCYTES # (AUTO) 1.2 K/uL (0.60-3.4); MEAN CORPUSCULAR HEMOGLOBIN 28.6 pg (27.0-31.0); MEAN CORPUSCULAR HGB CONC 30.6 (31.8-35.4); MEAN CORPUSCULAR VOLUME 93.6 fl (81.0-99.0); MONOCYTES # (AUTO) 0.8 K/uL (0.4-2.0); MONOCYTES % (AUTO) 13.1 (0-10); NEUTROPHILS # (AUTO) 3.9 K/ul (2.0-6.9); NEUTROPHILS % (AUTO) 62.9 % (42.2-75.2); PLATELET COUNT 198 10^3/uL (140-440); RDW COEFFICIENT OF VARIATION 14.6 % (11.6-14.8); RED BLOOD COUNT 3.91 10^6/ul (4.20-5.40); WHITE BLOOD COUNT 6.11 K/ul (4.6-10.2)
[2023-06-16 05:59] LABS: ALANINE AMINOTRANSFERASE 127.9 U/L (0-35); ALBUMIN 3.14 g/dL (3.5-5.0); ALKALINE PHOSPHATASE 110.3 U/L (53-141); ASPARTATE AMINO TRANSFERASE 108.9 U/L (14-36); BILIRUBIN,TOTAL 0.5 mg/dL (0.2-1.3); BLOOD UREA NITROGEN 13.6 mg/dL (7-17); CALCIUM 8.05 mg/dL (8.4-10.2); CARBON DIOXIDE 25.2 mmol/L (22-30.0); CHLORIDE 105.1 mmol/L (98-107); CREATININE 0.67 mg/dL (0.60-1.30); GLUCOSE 124.9 mg/dL (74-106); POTASSIUM 3.7 mmol/L (3.5-5.1); SODIUM 136.7 mmol/L (134.5-145); TOTAL PROTEIN 6.62 g/dL (6.3-8.2)
[2023-06-16 07:27] LABS: HBsAgSCREEN Negative (Negative); HCV ANTIBODY Non Reactive (Non Reactive); HEP A AB, IgM Negative (Negative); HEP B CORE Ab, IgM Negative (Negative)
[2023-06-16] MEDS: ROCEPHIN 1 GM/50 ML D5W 1 GM/50 ML BAG IV SCH (09:10)
[2023-06-16] MEDS: SYNTHROID PO SCH (09:15)
[2023-06-16] MEDS: PROTONIX PO SCH ×2 (09:15→17:18)
[2023-06-16] MEDS: FERROUS SULFATE PO SCH ×2 (09:16→20:24)
[2023-06-16] MEDS: TOPROL XL PO SCH (09:17)
[2023-06-16] MEDS: MAG-OX PO SCH (09:19)
[2023-06-16] MEDS: ZESTRIL PO SCH (09:19)
[2023-06-16] MEDS: CARDIZEM CD PO SCH (09:20)
[2023-06-16] MEDS: LOVENOX SUBCUT SCH (09:24)
[2023-06-16] MEDS: ZITHROMAX 500 MG in SODIUM CHLORIDE 250 ML IV SCH (09:46)
--- NOTE | 2023-06-16 11:03 | PCM.PROG ---
Date/Time Seen Date Seen by Provider: 06/16/23 Time Seen by Provider: 08:40 Provider Provider: POLINA MORRIS, [facility] Chief Complaint Chief Complaint: SEPSIS Subjective Subjective: No events overnight. Patient reports feeling "okay". Objective Appearance: Positive No Apparent Distress, Ill-Appearing, Thin and Cachectic Chest/Lungs: Positive Symmetrical With Equal Breath Sounds, Clear to Auscultation Bilaterally (diminished) and Good Air Movement all 4 Lung Freitas Heart: Positive RRR and Pulses Normal GI/: Positive Soft, Nontender, Bowel Sounds Normal and No Distention Musculoskeletal: Positive Other (contracted lower extremities, chronic left sided weakness) and Not Examined Neurological: Positive Sensation Intact, Alert and Disorinted Vital Signs Vital Signs: Vital Signs: Last 24 Hours 06/15/23 13:00 06/15/23 14:00 06/15/23 22:00 Temperature 97.1 F L 98.4 F Temperature Source Oral Oral Pulse Rate 87 74 Pulse Rate [Apical] Respiratory Rate 20 18 Blood Pressure 106/65 125/78 Blood Pressure Mean 78 93 Blood Pressure Location Left Arm Right Arm Blood Pressure Position Supine Sitting O2 Sat by Pulse Oximetry 98 94 L Oxygen Delivery Method Room Air Room Air Telemetry Type Remote Telemetry Telemetry Monitoring Continues Irregular Telemetry Rate (Approximate) Telemetry Heart Rate 83 EKG QRS Interval 0.06 Telemetry Strip Reading Afib 06/15/23 19:00 06/15/23 20:00 06/16/23 01:00 Temperature Temperature Source Pulse Rate Pulse Rate [Apical] 76 Respiratory Rate 16 Blood Pressure Blood Pressure Mean Blood Pressure Location Blood Pressure Position O2 Sat by Pulse Oximetry Oxygen Delivery Method Room Air Telemetry Type Remote Telemetry Remote Telemetry Telemetry Monitoring Continues Continues Irregular Telemetry Rate (Approximate) 90-100 BPM 70-80 BPM Telemetry Heart Rate 98 74 EKG QRS Interval 0.09 0.07 Telemetry Strip Reading A-Fib A-Fib 06/16/23 05:00 06/16/23 07:00 Temperature 97.2 F L Temperature Source Temporal Artery Scan Pulse Rate 82 Pulse Rate [Apical] Respiratory Rate 16 Blood Pressure 153/81 H Blood Pressure Mean 105 Blood Pressure Location Right Arm Blood Pressure Position O2 Sat by Pulse Oximetry 97 Oxygen Delivery Method Room Air Telemetry Type Remote Telemetry Telemetry Monitoring Continues Irregular Telemetry Rate (Approximate) Telemetry Heart Rate 99 EKG QRS Interval 0.08 Telemetry Strip Reading Afib Lab Results Lab Results: Lab Results: Last 24 Hours 06/16/23 06/16/23 06/15/23 05:30 05:14 05:21 WBC 6.11 RBC 3.91 L Hgb 11.2 L Hct 36.6 L MCV 93.6 MCH 28.6 MCHC 30.6 L RDW Coeff of Tony 14.6 Plt Count 198 Immature Gran % (Auto) 0.8 Neut % (Auto) 62.9 Lymph % (Auto) 20.0 Becker % (Auto) 13.1 H Eos % (Auto) 2.5 Baso % (Auto) 0.7 Neut # (Auto) 3.9 Lymph # (Auto) 1.2 Becker # (Auto) 0.8 Eos # (Auto) 0.2 Baso # (Auto) 0.0 Immature Gran # (Auto) 0.1 Sodium 136.7 Potassium 3.70 Chloride 105.1 Carbon Dioxide 25.2 Anion Gap 10.10 BUN 13.6 Creatinine 0.67 Estimated GFR (MDRD) 84.00 BUN/Creatinine Ratio 20.29 Glucose 124.9 H Calcium 8.05 L Total Bilirubin 0.50 AST 108.9 H D ALT 127.9 H Alkaline Phosphatase 110.3 C-Reactive Prot, Quant Total Protein 6.62 Albumin 3.14 L Globulin 3.48 Albumin/Globulin Ratio 0.90 Procalcitonin 0.37 H Hepatitis A IgM Ab Negative Hep Bs Antigen Negative Hep B Core IgM Ab Negative Hepatitis C Antibody Non reactive 06/13/23 20:30 WBC RBC Hgb Hct MCV MCH MCHC RDW Coeff of Tony Plt Count Immature Gran % (Auto) Neut % (Auto) Lymph % (Auto) Becker % (Auto) Eos % (Auto) Baso % (Auto) Neut # (Auto) Lymph # (Auto) Becker # (Auto) Eos # (Auto) Baso # (Auto) Immature Gran # (Auto) Sodium Potassium Chloride Carbon Dioxide Anion Gap BUN Creatinine Estimated GFR (MDRD) BUN/Creatinine Ratio Glucose Calcium Total Bilirubin AST ALT Alkaline Phosphatase C-Reactive Prot, Quant 110 H Total Protein Albumin Globulin Albumin/Globulin Ratio Procalcitonin Hepatitis A IgM Ab Hep Bs Antigen Hep B Core IgM Ab Hepatitis C Antibody Additional Comments Additional Comments: I have independently reviewed and interpreted the labs/EKGs/imaging ordered during this hospital stay. I have reviewed outside records that are available in our EMR that pertain to medical stay including imaging/notes/labs from previous visits. Active Medications Active Medications: Medications Generic Name Dose Route Start Last Admin Trade Name Kenisha PRN Reason Stop Dose Admin Diltiazem HCl 120 mg 06/14/23 09:00 06/16/23 09:20 Diltiazem Hcl 120 Mg Cap.Er.24h PO 120 mg DAILY PAOLA Administration Enoxaparin Sodium 30 mg 06/15/23 09:00 06/16/23 09:24 Enoxaparin Sodium 30 Mg/0.3 Ml Syr SUBCUT 30 mg DAILY PAOLA Administration Ferrous Sulfate 324 mg 06/14/23 09:00 06/16/23 09:16 Ferrous Sulfate 324 Mg Tablet. PO 324 mg BID PAOLA Administration CEFTRIAXONE/D5W 1 GM PREMIX 1 gm in 50 mls @ 100 mls/hr 06/14/23 12:30 09:10 Rocephin 1 Gm/50 Ml D5w IV 06/17/23 12:29 100 mls/hr DAILY PAOLA Administration Azithromycin 500 mg/ Sodium 250 mls @ 250 mls/hr 06/14/23 12:30 06/16/23 09:46 Chloride IV 06/17/23 12:29 250 mls/hr DAILY PAOLA Administration Insulin Human Lispro 0 unit 06/14/23 12:05 06/15/23 20:52 Insulin Lispro 100 Unit/Ml (3 Ml) Vial SUBCUT 3 unit PRN PRN Administration Hyperglycemia Protocol Levothyroxine Sodium 50 mcg 06/16/23 09:00 06/16/23 09:15 Levothyroxine Sodium 50 Mcg Tablet PO 50 mcg QDAC PAOLA Administration Lisinopril 20 mg 06/14/23 09:00 06/16/23 09:19 Lisinopril 10 Mg Tablet PO 20 mg DAILY PAOLA Administration Magnesium Oxide 400 mg 06/14/23 09:00 06/16/23 09:19 Magnesium Oxide 400 Mg Tablet PO 400 mg DAILY PAOLA Administration Melatonin 3 mg 06/14/23 21:00 06/15/23 20:51 Melatonin 3 Mg Tablet PO 3 mg BEDTIME PAOLA Administration Metoprolol Succinate 200 mg 06/14/23 09:00 06/16/23 09:17 Metoprolol Succinate 50 Mg Tab.Er.24h PO 200 mg DAILY PAOLA Administration Mirtazapine 15 mg 06/14/23 21:00 06/15/23 20:51 Mirtazapine 15 Mg Tablet PO 15 mg BEDTIME PAOLA Administration Non-Formulary Medication 0.75 mg 06/15/23 09:00 06/15/23 10:43 Dulaglutide [Trulicity] SUBCUT Not Given WEEKLY PAOLA Pantoprazole Sodium 40 mg 06/16/23 09:00 06/16/23 09:15 Pantoprazole Sodium 40 Mg Tablet. PO 40 mg BIDAC PAOLA Administration Sodium Chloride 1 syr 06/14/23 13:00 06/16/23 06:06 0.9% Sodium Chloride 10 Ml Disp.Syrin IVF 1 syr Q8HR PAOLA Administration Plan Plan: 1. CAP, left - Rocephin and azith ordered. RT consult - no hypoxia at this time, CTA negative for PE 2. UTI - UA suspect for UTI, Cont rocephin. UC negative 3. Sepsis in setting of CAP and UTI - Continue abx as above. BC were not completed in the ER, new ones ordered this am and pending. Procal trending down, WBC in normal range with abx.. Renal function at baseline. 4. Acute Transaminitis - improving, likely due to above, liver us negative, hep panel pending, monitoring enzymes daily 5. Paroxysmal a fib - Not on blood thinner due to past GI bleed. Cont metoprolol and cardizem. 6. DMt2 - Hold metformin. SS insulin. Accuchecks achs. 7. Hypertension - Continue home meds 8. Hypothyroidism - Continue home meds 9. Iron deficiency - Continue iron supplement 10. GERD - Continue home meds 11. Elevated d dimer - CTA negative for PE, US to r/o DVT negative. Review Statement Review Statement: I have personally discussed and reviewed the patient's visit/currently labs/imaging/decision making with Dr. Jones, my supervising attending. Greater that 50 minutes spent with patient, 50% of the time spent with this patient was devoted to counseling and coordination of care.
[2023-06-16] MEDS: MELATONIN PO SCH (20:24)
[2023-06-16] MEDS: REMERON PO SCH (20:24)
[2023-06-17] MEDS: SYNTHROID PO SCH (05:51)
[2023-06-17] MEDS: PROTONIX PO SCH (05:52)
[2023-06-17 05:53] LABS: BASOPHILS % (AUTO) 0.6 % (0.0-3.0); EOSINOPHILS # (AUTO) 0.2 K/ul (0.0-0.7); EOSINOPHILS % (AUTO) 2.2 % (0.0-7.0); HEMATOCRIT 36.7 % (37.0-47.0); HEMOGLOBIN 11.3 g/dl (12.0-16.0); IMMATURE GRANULOCYTE # (AUTO) 0.1 (0.0-1.0); IMMATURE GRANULOCYTE % (AUTO) 1.3 % (0.0-5.0); LYMPHOCYTES # (AUTO) 1.3 K/uL (0.60-3.4); LYMPHOCYTES % (AUTO) 19.2 (10.0-50.0); MEAN CORPUSCULAR HEMOGLOBIN 28.5 pg (27.0-31.0); MEAN CORPUSCULAR HGB CONC 30.8 (31.8-35.4); MEAN CORPUSCULAR VOLUME 92.7 fl (81.0-99.0); MONOCYTES # (AUTO) 0.9 K/uL (0.4-2.0); MONOCYTES % (AUTO) 13.4 (0-10); NEUTROPHILS # (AUTO) 4.3 K/ul (2.0-6.9); NEUTROPHILS % (AUTO) 63.3 % (42.2-75.2); PLATELET COUNT 289 10^3/uL (140-440); RDW COEFFICIENT OF VARIATION 14.1 % (11.6-14.8); RED BLOOD COUNT 3.96 10^6/ul (4.20-5.40); WHITE BLOOD COUNT 6.72 K/ul (4.6-10.2)
[2023-06-17 05:56] VITALS: BP 150/85; PULSE 94; RESP 16; TEMP 98.6
[2023-06-17 06:15] LABS: ALANINE AMINOTRANSFERASE 108.1 U/L (0-35); ALBUMIN 3.18 g/dL (3.5-5.0); ALKALINE PHOSPHATASE 113.5 U/L (53-141); ASPARTATE AMINO TRANSFERASE 76.7 U/L (14-36); BILIRUBIN,TOTAL 0.42 mg/dL (0.2-1.3); BLOOD UREA NITROGEN 12.1 mg/dL (7-17); CALCIUM 8.29 mg/dL (8.4-10.2); CARBON DIOXIDE 27.2 mmol/L (22-30.0); CHLORIDE 102.4 mmol/L (98-107); CREATININE 0.69 mg/dL (0.60-1.30); GLUCOSE 139.6 mg/dL (74-106); POTASSIUM 3.56 mmol/L (3.5-5.1); SODIUM 136.7 mmol/L (134.5-145); TOTAL PROTEIN 6.71 g/dL (6.3-8.2)
[2023-06-17] MEDS: ROCEPHIN 1 GM/50 ML D5W 1 GM/50 ML BAG IV SCH (08:00)
[2023-06-17] MEDS: TOPROL XL PO SCH (08:02)
[2023-06-17] MEDS: CARDIZEM CD PO SCH (08:03)
[2023-06-17] MEDS: FERROUS SULFATE PO SCH (08:04)
[2023-06-17] MEDS: MAG-OX PO SCH (08:04)
[2023-06-17] MEDS: ZESTRIL PO SCH (08:04)
[2023-06-17] MEDS: LOVENOX SUBCUT SCH (08:08)
[2023-06-17] MEDS: ZITHROMAX 500 MG in SODIUM CHLORIDE 250 ML IV SCH (09:13)
--- NOTE | 2023-06-17 12:48 | DCSUM ---
Admission Date Admission Date: 06/13/23 Discharge Date Discharge Date: 06/17/23 Admission Diagnosis Admission Diagnosis: 1. CAP, left 2. UTI 3. Sepsis in setting of CAP and UTI 4. Paroxysmal a fib 5. DMt2 6. Hypertension 7. Hypothyroidism 8. Iron deficiency 9. GERD 10. Elevated d dimer Discharge Diagnosis Discharge Diagnosis: 1. CAP, left - Improving 2. UTI - Improving 3. Sepsis in setting of CAP and UTI - Ruled out 4. Acute Transaminitis - Improving 5. Paroxysmal a fib - Stable 6. DMt2 - Stable 7. Hypertension - Stable 8. Hypothyroidism - Stable 9. Iron deficiency - Stable 10. GERD - Stable 11. Elevated d dimer - Conditions associated ruled out Hospital Provider Hospital Provider[facility] POLINA [facility]ORRIS[facility] Primary [facility] Physician Primary Care Physician: GAURAV JACKSON Summary of History and Physical Summary of History and Physical: Patient is an 82 year old female from the [place] with pmhx of CVA with left sided residual weakness, DMt@, HTN, heart failure, and paroxysmal a fib who presented to the long term for vomiting, decreased intake, and worsening mentation. In the ER patient was found to have LLL pneumonia and UTI. WBC count mildly elevated 12.2 and procal 0.71. D dimer 1040. BNP 3640. She was given fluids due to looking dehydrated and meeting sepsis criteria. She was admitted to [facility]. On my evaluation, patient is eating breakfast with assistance of family. and son are present. states she is looking much better today. Son states her baseline is answering yes or no (sometimes appropriately), gets in wheelchair during the day, then back to bed. Normally isn't able to say her name or where she is. This morning she is alert, and answering yes and no to questions which is an improvement. Discussed with her hx of PAF and that she is in a fib now. He states they took her off of a blood thinner due to a GI bleed. ROS limited due to patient's inability to provide history. Hospital Course Subjective: Over course of stay, patient has not required any oxygen. WBC count has trended down with use of azithromycin and ceftriaxone. UTI shown on urinalysis but C&S did not show growth. Due to meeting sepsis criteria, blood cultures were ordered but not obtained in the ER. Repeat blood cultures were ordered. After 24 hours, blood cultures did not show growth. After approx. 27 hours 1 of the cultures showed gram + cocci. Likely contaminant based on other labs and patient condition. Liver enzymes were continuing to increase throughout stay. Liver US was completed and negative. Hepatitis panel was obtained and negative. Patient was also found to have elevated d-dimer. CTA Chest was completed to r/o PE that was negative and BLE US to r/o dvt which was also negative. All other home medications resumed. Patient has been alert, answering yes and no questions appropriately. Feeling better today on day of discharge. Appearance: Pleasant, No Apparent Distress and Alert HEENT: MMM and Supple CVS: No Rubs and No JVD Abdomen: Soft, Non-Tender and No Distention Respiratory: No Dyspnea Extremities: No Edema Vital Signs: Most Recent Vital Signs Temperature 98.6 F 06/17/23 05:52 Temperature Source Oral 06/17/23 05:52 Temperature Source Infrared 06/13/23 20:11 Pulse Rate 94 06/17/23 05:52 Respiratory Rate 16 06/17/23 05:52 Blood Pressure 150/85 H 06/17/23 05:52 Blood Pressure Mean 106 06/17/23 05:52 Blood Pressure Right Arm 129/79 06/13/23 23:30 Blood Pressure Location Right Radial Artery 06/17/23 05:52 Blood Pressure Position Supine 06/17/23 05:52 O2 Sat by Pulse Oximetry 95 06/17/23 05:52 Oxygen Delivery Method Room Air 06/17/23 08:00 Height 5 ft 06/13/23 23:30 Weight 106 lb 8 oz 06/13/23 23:30 Telemetry Type Remote Telemetry 06/17/23 07:00 Telemetry Monitoring Continues 06/17/23 07:00 Irregular Telemetry Rate (Approximate) 80-90 BPM 06/17/23 07:00 Telemetry Heart Rate 86 06/17/23 01:00 EKG QRS Interval 0.04 L 06/17/23 07:00 Telemetry Strip Reading afib 06/17/23 07:00 Lab Results Last 24 Hours: 06/17/23 05:39 WBC 6.72 RBC 3.96 L Hgb 11.3 L Hct 36.7 L MCV 92.7 MCH 28.5 MCHC 30.8 L RDW Coeff of Tony 14.1 Plt Count 289 D Immature Gran % (Auto) 1.3 Neut % (Auto) 63.3 Lymph % (Auto) 19.2 Cochran % (Auto) 13.4 H Eos % (Auto) 2.2 Baso % (Auto) 0.6 Neut # (Auto) 4.3 Lymph # (Auto) 1.3 Cochran # (Auto) 0.9 Eos # (Auto) 0.2 Baso # (Auto) 0.0 Immature Gran # (Auto) 0.1 Sodium 136.7 Potassium 3.56 Chloride 102.4 Carbon Dioxide 27.2 Anion Gap 10.66 BUN 12.1 Creatinine 0.69 Estimated GFR (MDRD) 82.00 BUN/Creatinine Ratio 17.53 Glucose 139.6 H Calcium 8.29 L Total Bilirubin 0.42 AST 76.7 H D ALT 108.1 H Alkaline Phosphatase 113.5 Total Protein 6.71 Albumin 3.18 L Globulin 3.53 Albumin/Globulin Ratio 0.90 Discharge Instructions Discharge Planning: Discharge Planning > 40 minutes If patient is discharged with left ventricular systolic dysfunction: NA Discharged with a beta manuel? [] If no, why not? [] NA Discharged with an travis/arb? [] If no, why not? [] NA Activity as tolerated Soft diet Complete course of antibiotics. Follow-up with PCP Discharge Medications: Medications at Discharge (Home Meds & RX) ferrous sulfate 325 mg (65 mg iron) tablet 325 mg PO BID 09/09/20 lisinopril 20 mg tablet 20 mg PO DAILY 09/09/20 magnesium oxide-magnesium amino acid chelate 300 mg capsule (Magnesium (oxide/AA chelate)) 300 cap PO DAILY 09/09/20 melatonin 3 mg tablet 3 mg PO BEDTIME PRN Sleep 09/09/20 metoprolol succinate 200 mg capsule sprinkle, ext. release 24 hr 200 mg PO DAILY 09/09/20 diltiazem HCl 120 mg capsule,extended release 24 hr 120 mg PO DAILY 06/13/23 dulaglutide 0.75 mg/0.5 mL subcutaneous pen injector (Trulicity) 0.75 mg subcut DAILY 06/13/23 levothyroxine 50 mcg tablet 50 mcg PO DAILY 06/13/23 metformin 500 mg 24 hr tablet,extended release (Glumetza) 500 mg PO BID 06/13/23 mirtazapine 15 mg tablet 15 mg PO BEDTIME 08/12/23 pantoprazole 40 mg tablet,delayed release 40 mg PO BID 06/13/23 azithromycin 500 mg tablet 500 mg PO DAILY 6 days #6 tabs 06/17/23 Discharge Plan Discharge Discharge Orders: Discharge Patient (ONCE); Ordered 06/17/23 Ordered By: RIMA WATSON Activity Restrictions/Additional Instructions: Activity as tolerated Soft diet Complete course of antibiotics. Follow-up with PCP Instructions: Community Acquired Pneumonia (GEN), Urinary Tract Infection in Older Adults (DC) Care Plan Goals: Problem: Infection Goal #1: No signs/symptoms of infection Instructions: Monitor for sign/symptoms of infection Monitor temperature Goal #2: White blood cell counts Within Normal Limits Instructions: Obtain labs per physician orders Patient Disposition: TRANSFER SNF Prescriptions: New azithromycin 500 mg tablet 500 mg PO DAILY 6 Days Qty: 6 0RF Continued lisinopril 20 mg Tablet 20 mg PO DAILY ferrous sulfate 325 mg (65 mg iron) Tablet 325 mg PO BID Magnesium (oxide/AA chelate) 300 mg Capsule 300 cap PO DAILY melatonin 3 mg Tablet 3 mg PO BEDTIME PRN (Reason: Sleep) metoprolol succinate 200 mg Capsule,Sprinkle,Er 24hr 200 mg PO DAILY diltiazem HCl 120 mg capsule,extended release 24hr 120 mg PO DAILY mirtazapine 15 mg tablet 15 mg PO BEDTIME levothyroxine 50 mcg tablet 50 mcg PO DAILY Trulicity 0.75 mg/0.5 mL pen injector 0.75 mg SUBCUT DAILY metformin [Glumetza] 500 mg tablet,ER farhan.retention 24 hr 500 mg PO BID pantoprazole 40 mg tablet,delayed release (DR/EC) 40 mg PO BID Did you review [place] [place] for ALL controlled substances?: No Discussed opioids are addictive and Narcan is available by prescription or from pharmacy.: No Condition: Stable
--- NOTE | 2023-06-22 11:53 | RS.OTINEVL ---
Subjective Patient information Date of Evaluation: 06/15/23 Date of Arrival on Unit: 06/13/23 Admitted From:: [facility] Diagnosis: UTI, LLL Pneumonia, sepsis PRECAUTIONS: fall risk Usual Living Arrangement: [facility] Living Arrangement Comments: longterm facility. Medical History: Hypertension, CVA/TIA, Dementia and CHF Medical History Comments:: Pt is not able to communicate. Pt tries to talk but is not always appropriate. Pt cannot speak her name nor where she is located. Medications: refer to chart. Subjective Information/ Patient Comments:: Pt tries to talk and gets some words out. She does better with yes or no questions. Level of function Prior to this admission, the patient could do the following:: Partially Dependent Ambulation Abilities prior to this admission: Pt living at the [facility]. Pt requires assistance for self feeding. Current Level of Function: Partially Dependent Interventions Objective Patient Orientation: Person Current Interventions: Telemetry Observation: Pt's LUE has increased tone in the shoulder, elbow, wrist. Interventions ROM Right Upper Extremity AROM: WFL's Strength Right Upper Extremity: Normal Left Upper Extremity: Rigid Sensation Right Upper Extremity: Intact/Normal Left Upper Extremity: Impaired Comments:: OT applied lotion to her BUE due to dry skin. ADL Skills Self Feeding Self Feeding: Mod Assist Grooming Grooming: Max Assist Grooming Set-up: Sitting Bathing Bathing UE: Max Assist Bathing LE: Max Assist Bathing Set-up: Bedside Dressing Dressing UE: Mod Assist Dressing LE: Max Assist Toilet Management Toilet Hygiene: Max Assist Toilet Clothing Management: Max Assist Functional Mobility Bed Mobility Rolling R/L: Max Assist Scooting: Max Assist Supine to Sit: Max Assist Transfers Sit to Stand: Not Tested Stand to Sit: Not Tested Stand Pivot Transfers: Not Tested Ambulation Assistance needed with Ambulation: Not Tested Safety Awareness Safety Awareness: Poor RUMA INDEX SCORE: . Additional Treatment Performed Time with patient Length of Evaluation: 19 Total treatment time: 0 Activities Do you enjoy playing games?: No Would you be interested in leaving your room for activities?: No Would you enjoy group activities?: No Do you have difficulty with your vision?: No What types of things do you enjoy doing? Any Hobbies?: Watching TV. Patient Interests:: Watching Television and Visiting/Socializing Patient Education Patient Education: Body/Joint mechanics and Education of Plan of Care Teaching Recipient: Patient Teaching Methods: Discussion and Demonstration Assessment Problem List:: Decreased level of function and Cognitive status limits abilities Further Therapy Indicated?: No Candidate for Swing Bed for Therapy Services?: no Evaluation Complexity: HISTORY: Medium, EXAM OF BODY SYSTEMS: Medium and CLINICAL DECISION MAKING: Medium Patient's Goal(s): Potential for patient to progress is very limited. Pt is not able to communicate her name or location. Pt has assistance with all ADLs and would benefit from skilled rehab in the nursing facility. Short Term Goals Goals GOAL 1: No goals at this time. Airfield Operations Specialist Goals GOAL 1: No goals at this time. Plan Duration of Treatment: N/A Anticipated Discharge Destination: Nursing Home Care Facility Treatment Diagnosis (ICD 10 Codes): Weakness R53.1 Has the Physician been added for Co-signature?: Yes
== END 2023-06-17 12:30 | DRG 193 ==
LOC: ED 20:04 → MEDSURG B 22:14
PROVIDERS: ADMIT Hospitalist; ATTEND Nurse Practitioner Family
DX: E11.65 Type 2 diabetes mellitus with hyperglycemia; R74.01 Elevation of levels of liver transaminase levels; A41.9 Sepsis, unspecified organism; R26.89 Other abnormalities of gait and mobility; I69.891 Dysphagia following other cerebrovascular disease; I69.352 Hemiplegia and hemiparesis following cerebral infarction affecting left dominant side; I69.328 Other speech and language deficits following cerebral infarction; D50.9 Iron deficiency anemia, unspecified; Z79.899 Other long term (current) drug therapy; Z51.81 Encounter for therapeutic drug level monitoring; Z74.09 Other reduced mobility; I48.0 Paroxysmal atrial fibrillation; J18.9 Pneumonia, unspecified organism; R26.2 Difficulty in walking, not elsewhere classified; F03.90 Unspecified dementia, unspecified severity, without behavioral disturbance, psychotic disturbance, mood disturbance, and anxiety; K21.9 Gastro-esophageal reflux disease without esophagitis; I50.32 Chronic diastolic (congestive) heart failure; N39.0 Urinary tract infection, site not specified; I11.0 Hypertensive heart disease with heart failure; Z79.84 Long term (current) use of oral hypoglycemic drugs; E03.9 Hypothyroidism, unspecified; E88.9 Metabolic disorder, unspecified; R41.82 Altered mental status, unspecified